=== PATIENT | female | born 1985 | race Caucasian/White ===

== ENCOUNTER 2018-03-05 22:57 | Emergency (ER) | payer OTHER ==
[~2018-03-05] VITALS: Ht 172.7 cm; Wt 59.0 kg
[2018-03-05 23:10] VITALS: Ht 172.7 cm; Wt 59.0 kg
[2018-03-06 00:07] LABS: BASOPHIL % 0.5 % (0-2); PLATELET COUNT 364 x10^3mcL (130-400)
[2018-03-06 00:12] LABS: RED CELL DISTRIBUTION WIDTH 16.4 % (11.5-14.5)
[2018-03-06 00:14] LABS: CALCIUM 9.5 mg/dL (8.5-10.1); CARBON DIOXIDE 28.6 mmol/L (21-32); CREATININE SERUM 1.5 mg/dL (0.6-1.0); POTASSIUM SERUM 4.1 mmol/L (3.5-5.1)
[2018-03-06 00:19] LABS: ALBUMIN 3.8 g/dL (3.4-5.0); BILIRUBIN TOTAL 0.4 mg/dL (0.20-1.00)
[2018-03-06 00:23] LABS: TOTAL PROTEIN, SERUM 8.7 g/dL (6.4-8.2)
[2018-03-06 02:59] VITALS: BP 124/84
== END 2018-03-06 02:59 | disposition other institution (70) ==
LOC: ED 22:57
PROVIDERS: Emergency Medicine
DX: E11.65 Type 2 diabetes mellitus with hyperglycemia (principal)
CPT/HCPCS: 82962; J1815; J7030

== ENCOUNTER 2018-03-05 22:57 | Emergency (ER) | payer OTHER | END 2018-03-06 02:59 | disposition other institution (70) | LOC: ED 22:57 | DX: Z02.89 Encounter for other administrative examinations (principal) ==